=== PATIENT | male | born 1990 | race Caucasian/White ===

== ENCOUNTER 2022-08-16 16:41 | Inpatient (IN) | payer OTHER ==
[~2022-08-16] VITALS: Ht 180.3 cm; Wt 117.5 kg
[2022-08-16 17:58] LABS: BASOPHILS % 0.4 % (0.0-2.0); EOSINOPHILS % 0.3 % (0.0-5.0); HEMOGLOBIN. 14.6 g/dL (14.0-18.0); LYMPHOCYTES % 15.1 % (20.0-50.0); MEAN CORPUSCULAR HEMOGLOBIN 25.7 pg (28.0-32.0); MEAN CORPUSCULAR VOLUME 80.7 fL (80.0-94.0); MEAN PLATELET VOLUME 7.9 fl (7.4-10.4); MONOCYTES % 10.1 % (2.0-8.0); NEUTROPHILS % 74.1 % (40.0-76.0); PLATELET 265 x1000/uL (130-400); RED BLOOD CELL COUNT 5.69 mill/uL (4.7-6.1); RED CELL DISTRIBUTION WIDTH 16.7 % (11.6-14.6)
[2022-08-16 18:04] LABS: CHLORIDE 100 mEq/L (98-107)
[2022-08-16 18:06] LABS: INR 1.3; PROTHROMBIN TIME 13.6 sec (9.6-11.0)
[2022-08-16] MEDS ORDERED: IPRATROPIUM/ALBUTEROL 0.5-3(2.5)MG/3ML NEB HHN NR (18:30)
[2022-08-16 19:03] LABS: BG BASE EXCESS 0.8 mmol/L (-2.0-2.0); BG DEOXYHEMOGLOBIN 2.8 % (0.0-5.0); BG FRACTION INSPIRED OXYGEN 30; BG HCO3 ACT 27.3 mmol/L (22.0-26.0); BG METHEMOGLOBIN 0.6 % (0.0-1.5); BG OXYGEN SATURATION 97.2 % (92.0-98.5); BG OXYHEMOGLOBIN 95.6 % (94.0-97.0); BG PCO2 50.3 mmHg (35.0-45.0); BG PH 7.352 (7.350-7.450); BG PO2 96.6 mmHg (75.0-100.0); BG SAMPLE SITE RIGHT RADIAL; BG TOTAL HEMOGLOBIN 15.9 g/dL (12.0-18.0); BG VENT MODE NASAL CANNULA
[2022-08-16] MEDS ORDERED: IOHEXOL-350 100 ML BOTTLE ONE (20:03)
[2022-08-17] VITALS: BP 142/75
[2022-08-17 07:25] VITALS: BP 140/91
[2022-08-17] MEDS ORDERED: INSULIN LISPRO 100 UNITS/ML SUBCUT STA (08:00)
[2022-08-17] MEDS ORDERED: DEXTROSE 50% WATER 50ML SYRINGE IV PRN (08:00)
[2022-08-17] MEDS: INSULIN LISPRO 100 UNITS/ML SUBCUT SCH ×4 (08:15→21:00)
[2022-08-17 09:00] VITALS: BP 133/76
[2022-08-17] MEDS: LISINOPRIL 20MG TABLET PO SCH (09:00)
[2022-08-17] MEDS: CARVEDILOL 3.125 MG TABLET PO SCH ×2 (09:00→20:59)
[2022-08-17] MEDS ORDERED: FUROSEMIDE 40MG/4ML VIAL IVP SCH (09:00)
[2022-08-17] MEDS: ENOXAPARIN 30MG/0.3ML SYR SUBCUT SCH ×2 (09:07→20:58)
[2022-08-17] MEDS: BLOOD SUGAR DIAGNOSTIC STRIP TEST SCH ×4 (09:10→21:00)
[2022-08-17] MEDS ORDERED: METHYLPREDNISOLONE SOD SUCC 40 MG/ML VIAL IV SCH (10:30)
[2022-08-17 11:04] LABS: BASOPHILS % 0.2 % (0.0-2.0); EOSINOPHILS % 0.4 % (0.0-5.0); HEMATOCRIT. 46.9 % (42.0-52.0); LYMPHOCYTES % 16.2 % (20.0-50.0); MEAN CORPUSCULAR HEMOGLOBIN 25.9 pg (28.0-32.0); MEAN CORPUSCULAR VOLUME 81.2 fL (80.0-94.0); MEAN PLATELET VOLUME 7.8 fl (7.4-10.4); MONOCYTES % 10.6 % (2.0-8.0); NEUTROPHILS % 72.6 % (40.0-76.0); PLATELET 269 x1000/uL (130-400); RED BLOOD CELL COUNT 5.78 mill/uL (4.7-6.1); RED CELL DISTRIBUTION WIDTH 16.3 % (11.6-14.6)
[2022-08-17 11:19] LABS: CHLORIDE 99 mEq/L (98-107)
[2022-08-17 11:26] LABS: HDL CHOLESTEROL 22 mg/dL (40-59); LDL CHOLESTEROL 80 mg/dL (5-100)
[2022-08-17 12:00] VITALS: BP 144/86
[2022-08-17] MEDS ORDERED: IPRATROPIUM/ALBUTEROL 0.5-3(2.5)MG/3ML NEB HHN SCH (12:00)
[2022-08-17] MEDS ORDERED: IPRATROPIUM BROMIDE (0.02%) 0.5MG/2.5ML NEB HHN SCH (12:00)
[2022-08-17] MEDS ORDERED: ALBUTEROL (0.083%) 2.5MG/3ML NEB HHN SCH (12:00)
[2022-08-17] MEDS: HYDRALAZINE HCL 50MG TABLET PO SCH ×2 (13:16→21:00)
[2022-08-17] MEDS ORDERED: IPRATROPIUM BROMIDE (0.02%) 0.5MG/2.5ML NEB HHN PRN (13:45)
[2022-08-17] MEDS ORDERED: ALBUTEROL (0.083%) 2.5MG/3ML NEB HHN PRN (13:45)
[2022-08-17 14:47] LABS: BG BASE EXCESS 6.2 mmol/L (-2.0-2.0); BG DEOXYHEMOGLOBIN 9.2 % (0.0-5.0); BG FRACTION INSPIRED OXYGEN 21; BG METHEMOGLOBIN 0.1 % (0.0-1.5); BG OXYGEN SATURATION 90.7 % (92.0-98.5); BG OXYHEMOGLOBIN 89.7 % (94.0-97.0); BG PCO2 61.8 mmHg (35.0-45.0); BG PH 7.358 (7.350-7.450); BG PO2 59.9 mmHg (75.0-100.0); BG SAMPLE SITE RIGHT RADIAL; BG TOTAL HEMOGLOBIN 15.4 g/dL (12.0-18.0)
[2022-08-17 16:00] VITALS: BP 137/83
[2022-08-17 20:00] VITALS: BP 132/77
[2022-08-17] MEDS: FAMOTIDINE 20MG TABLET PO SCH (20:59)
[2022-08-18] VITALS (12 sets, daily range): BP systolic 127–157; BP diastolic 52–99
[2022-08-18 01:32] LABS: *AMPHETAMINES SCREEN URINE NEGATIVE (NEGATIVE); *BARBITURATES SCREEN URINE NEGATIVE (NEGATIVE); *BENZODIAZEPINES SCREEN URINE NEGATIVE (NEGATIVE); *COCAINE SCREEN URINE NEGATIVE (NEGATIVE); CANNABINOID URINE SCREEN PRESUMTIVE POSITIVE (NEGATIVE); METHADONE URINE SCREEN NEGATIVE (NEGATIVE); OPIATES URINE SCREEN NEGATIVE (NEGATIVE); PHENCYCLIDINE URINE SCREEN NEGATIVE (NEGATIVE)
[2022-08-18] MEDS: HYDRALAZINE HCL 50MG TABLET PO SCH ×3 (06:26→21:51)
[2022-08-18] MEDS: INSULIN LISPRO 100 UNITS/ML SUBCUT SCH ×3 (07:30→21:00)
[2022-08-18] MEDS: BLOOD SUGAR DIAGNOSTIC STRIP TEST SCH ×4 (07:30→21:05)
[2022-08-18 09:43] LABS: BASOPHILS % 0.1 % (0.0-2.0); HEMATOCRIT. 47.6 % (42.0-52.0); LYMPHOCYTES % 9.5 % (20.0-50.0); MEAN CORPUSCULAR HEMOGLOBIN 25.7 pg (28.0-32.0); MEAN CORPUSCULAR VOLUME 81.9 fL (80.0-94.0); MEAN PLATELET VOLUME 8.1 fl (7.4-10.4); MONOCYTES % 6.4 % (2.0-8.0); PLATELET 286 x1000/uL (130-400); RED BLOOD CELL COUNT 5.81 mill/uL (4.7-6.1); RED CELL DISTRIBUTION WIDTH 16.3 % (11.6-14.6)
[2022-08-18 09:55] LABS: CHLORIDE 98 mEq/L (98-107)
[2022-08-18] MEDS: ENOXAPARIN 30MG/0.3ML SYR SUBCUT SCH ×2 (09:57→21:51)
[2022-08-18] MEDS: FAMOTIDINE 20MG TABLET PO SCH ×2 (09:59→18:17)
[2022-08-18] MEDS: LISINOPRIL 20MG TABLET PO SCH (09:59)
[2022-08-18] MEDS: CARVEDILOL 3.125 MG TABLET PO SCH ×2 (09:59→21:51)
[2022-08-19] VITALS (7 sets, daily range): BP systolic 141–168; BP diastolic 76–99
[2022-08-19] MEDS: HYDRALAZINE HCL 50MG TABLET PO SCH ×3 (06:34→22:08)
[2022-08-19] MEDS: INSULIN LISPRO 100 UNITS/ML SUBCUT SCH ×4 (07:30→21:00)
[2022-08-19] MEDS: BLOOD SUGAR DIAGNOSTIC STRIP TEST SCH ×4 (08:07→21:00)
[2022-08-19] MEDS: LISINOPRIL 20MG TABLET PO SCH (08:14)
[2022-08-19] MEDS: FAMOTIDINE 20MG TABLET PO SCH ×2 (08:14→16:33)
[2022-08-19] MEDS: ENOXAPARIN 30MG/0.3ML SYR SUBCUT SCH ×2 (08:15→22:07)
[2022-08-19] MEDS: CARVEDILOL 3.125 MG TABLET PO SCH ×2 (08:15→22:07)
[2022-08-20] VITALS (7 sets, daily range): BP systolic 139–158; BP diastolic 75–106
[2022-08-20] MEDS: HYDRALAZINE HCL 50MG TABLET PO SCH ×3 (06:45→21:37)
[2022-08-20] MEDS: INSULIN LISPRO 100 UNITS/ML SUBCUT SCH ×4 (07:30→21:00)
[2022-08-20] MEDS: BLOOD SUGAR DIAGNOSTIC STRIP TEST SCH ×4 (07:56→21:00)
[2022-08-20] MEDS: ENOXAPARIN 30MG/0.3ML SYR SUBCUT SCH ×2 (08:49→21:38)
[2022-08-20] MEDS: FAMOTIDINE 20MG TABLET PO SCH ×2 (08:50→17:16)
[2022-08-20] MEDS: LISINOPRIL 20MG TABLET PO SCH (08:50)
[2022-08-20] MEDS: CARVEDILOL 3.125 MG TABLET PO SCH (08:51)
[2022-08-20] MEDS: CARVEDILOL 12.5MG TABLET PO SCH (21:37)
[2022-08-21] VITALS (11 sets, daily range): BP systolic 104–138; BP diastolic 70–99
[2022-08-21] MEDS: HYDRALAZINE HCL 50MG TABLET PO SCH ×2 (06:07→14:00)
[2022-08-21] MEDS: INSULIN LISPRO 100 UNITS/ML SUBCUT SCH ×4 (07:30→21:00)
[2022-08-21] MEDS: BLOOD SUGAR DIAGNOSTIC STRIP TEST SCH ×4 (07:30→21:00)
[2022-08-21] MEDS: ENOXAPARIN 30MG/0.3ML SYR SUBCUT SCH ×2 (09:20→21:56)
[2022-08-21] MEDS: FAMOTIDINE 20MG TABLET PO SCH ×2 (09:21→17:57)
[2022-08-21] MEDS: CARVEDILOL 12.5MG TABLET PO SCH ×2 (09:21→21:55)
[2022-08-21] MEDS: LISINOPRIL 20MG TABLET PO SCH (09:22)
[2022-08-21] MEDS ORDERED: LISI20TA31 PO (13:12)
[2022-08-21] MEDS ORDERED: HYDR-4135 PO (13:12)
[2022-08-21] MEDS ORDERED: COR12 PO (13:12)
[2022-08-21] MEDS ORDERED: ALBU2.5V13 HHN (13:12)
[2022-08-21] MEDS ORDERED: FURO-151 MT (13:14)
[2022-08-21] MEDS: FUROSEMIDE 40MG TABLET PO SCH (14:38)
[2022-08-22] VITALS (7 sets, daily range): BP systolic 113–137; BP diastolic 61–83
[2022-08-22] MEDS: INSULIN LISPRO 100 UNITS/ML SUBCUT SCH ×2 (07:30→11:42)
[2022-08-22] MEDS: BLOOD SUGAR DIAGNOSTIC STRIP TEST SCH ×2 (07:30→11:42)
[2022-08-22] MEDS: ENOXAPARIN 30MG/0.3ML SYR SUBCUT SCH (08:53)
[2022-08-22] MEDS: CARVEDILOL 12.5MG TABLET PO SCH (08:54)
[2022-08-22] MEDS: FAMOTIDINE 20MG TABLET PO SCH (08:54)
[2022-08-22] MEDS: LISINOPRIL 20MG TABLET PO SCH (08:54)
[2022-08-22] MEDS: FUROSEMIDE 40MG TABLET PO SCH (08:54)
[2022-08-22 12:38] LABS: BASOPHILS % 0.3 % (0.0-2.0); EOSINOPHILS % 3.4 % (0.0-5.0); HEMATOCRIT. 50.1 % (42.0-52.0); HEMOGLOBIN. 15.9 g/dL (14.0-18.0); LYMPHOCYTES % 24.1 % (20.0-50.0); MEAN CORPUSCULAR HEMOGLOBIN 25.7 pg (28.0-32.0); MEAN CORPUSCULAR VOLUME 81.1 fL (80.0-94.0); MEAN PLATELET VOLUME 7.4 fl (7.4-10.4); NEUTROPHILS % 62.2 % (40.0-76.0); PLATELET 270 x1000/uL (130-400); RED BLOOD CELL COUNT 6.18 mill/uL (4.7-6.1); RED CELL DISTRIBUTION WIDTH 16.5 % (11.6-14.6)
[2022-08-22 13:11] LABS: CHLORIDE 96 mEq/L (98-107)
[2022-08-22] MEDS ORDERED: METFORMIN HCL 500MG TABLET PO SCH (18:00)
[2022-08-23] MEDS ORDERED: FUROSEMIDE 20MG TABLET PO SCH (09:00)
== END 2022-08-22 16:48 | disposition home health service (06) | DRG 194 ==
LOC: ER 16:41 → MICUSO 21:22 → 5EST 23:57
PROVIDERS: ADMIT Internal Medicine; ATTEND Internal Medicine
PROC: 5A09357 Assistance with Respiratory Ventilation, Less than 24 Consecutive Hours, Continuous Positive Airway Pressure (ICD-10-PCS; principal; 2022-08-17)
PROC: 5A09357 Assistance with Respiratory Ventilation, Less than 24 Consecutive Hours, Continuous Positive Airway Pressure (ICD-10-PCS; 2022-08-20)
DX: I11.0 Hypertensive heart disease with heart failure (principal); J96.00 Acute respiratory failure, unspecified whether with hypoxia or hypercapnia; E44.0 Moderate protein-calorie malnutrition; I50.23 Acute on chronic systolic (congestive) heart failure; K76.0 Fatty (change of) liver, not elsewhere classified; E66.9 Obesity, unspecified; G47.33 Obstructive sleep apnea (adult) (pediatric); I42.9 Cardiomyopathy, unspecified; I27.20 Pulmonary hypertension, unspecified; F17.210 Nicotine dependence, cigarettes, uncomplicated; E11.65 Type 2 diabetes mellitus with hyperglycemia; I08.1 Rheumatic disorders of both mitral and tricuspid valves; Z79.4 Long term (current) use of insulin; Z68.36 Body mass index [BMI] 36.0-36.9, adult
CPT/HCPCS: 36415; 36600; 71045; 71275; 76700; 80048; 80053; 80061; 80305; 82375; 82805; 82962; 83036; 83880; 84484; 85025; 85379; 93005; 93306; 94618; 94640; 94660; 99285; J1650; J1815; J1940; J2920; Q9967

== ENCOUNTER 2022-09-27 22:31 | Emergency (ER) | payer OTHER ==
[~2022-09-27] VITALS: Ht 182.9 cm; Wt 130.8 kg
[~2022-09-27 22:31] MED LIST: ALBU2.5V13 HHN; COR12 PO; FURO-151 MT; HYDR-4135 PO; LISI20TA31 PO
[2022-09-27 22:41] VITALS: BP 116/115
[2022-09-28 01:17] LABS: BASOPHILS % 0.3 % (0.0-2.0); EOSINOPHILS % 1.9 % (0.0-5.0); HEMOGLOBIN. 14.1 g/dL (14.0-18.0); LYMPHOCYTES % 24.1 % (20.0-50.0); MEAN CORPUSCULAR HEMOGLOBIN 25.4 pg (28.0-32.0); MEAN PLATELET VOLUME 7.5 fl (7.4-10.4); MONOCYTES % 9.6 % (2.0-8.0); NEUTROPHILS % 64.1 % (40.0-76.0); PLATELET 218 x1000/uL (130-400); RED BLOOD CELL COUNT 5.57 mill/uL (4.7-6.1); RED CELL DISTRIBUTION WIDTH 17.5 % (11.6-14.6)
[2022-09-28 01:33] LABS: CHLORIDE 103 mEq/L (98-107)
[2022-09-28] MEDS ORDERED: FURO-151 MT (02:33)
[2022-09-28] MEDS ORDERED: LISI20TA31 PO (02:33)
[2022-09-28] MEDS ORDERED: COR12 PO (02:33)
[2022-09-28] MEDS ORDERED: HYDR-4135 PO (02:33)
== END 2022-09-28 02:49 | disposition home or self-care (01) ==
LOC: ER 22:31
DX: I16.1 Hypertensive emergency (principal); E11.9 Type 2 diabetes mellitus without complications; I10 Essential (primary) hypertension
CPT/HCPCS: 36415; 71045; 80053; 83880; 84484; 85025; 93005; 99285